=== PATIENT | female | born 2000 | race Hispanic/Latino ===

== ENCOUNTER 2023-01-24 19:04 | Emergency (ER) | payer OTHER ==
[~2023-01-24] VITALS: Ht 157.5 cm; Wt 102.1 kg
[2023-01-24 19:13] VITALS: BP 126/74
[2023-01-24] MEDS ORDERED: CLIN-141 PO (20:54)
== END 2023-01-24 21:34 | disposition home or self-care (01) ==
LOC: EDH 19:04
DX: M79.662 Pain in left lower leg (principal); E11.9 Type 2 diabetes mellitus without complications; W54.0XXA Bitten by dog, initial encounter; Y93.89 Activity, other specified; Y92.89 Other specified places as the place of occurrence of the external cause; Y99.8 Other external cause status